=== PATIENT | female | born 1950 | race Caucasian/White ===

== ENCOUNTER 2017-05-01 16:05 | Emergency (ER) | payer MEDICARE, BC ==
[~2017-05-01] VITALS: Ht 154.9 cm; Wt 75.0 kg
[~2017-05-01 16:05] MED LIST: ATOR40TA PO; CHOL10008 PO; CITA40TA22 PO; HYDR-3972 PO; LOSA50TA3 PO; PANT-47 PO; POTA20TA10 PO; SPIR50TA PO
[2017-05-01] MEDS ORDERED: normal saline 1000ML IV soln IVB ONE ×2 (16:10→16:45)
[2017-05-01] MEDS ORDERED: ondansetron/PF 4mg/2ml inj IV ONE (16:10)
[2017-05-01 16:31] LABS: BASOPHILS # (AUTO) 0.1 X10'3 (0-0.2); BASOPHILS % (AUTO) 0.6 % (0-1); EOSINOPHILS % (AUTO) 0 % (0-6); HEMOGLOBIN 14.9 g/dl (12.0-16.0); LYMPHOCYTES # (AUTO) 0.8 X10'3 (1.1-4.8); LYMPHOCYTES % (AUTO) 4.3 % (21-51); MEAN CORPUSCULAR HGB CONC 33.8 % (33.0-36.5); MEAN CORPUSCULAR VOLUME 85.7 FL (78-98); MEAN PLATELET VOLUME 8.3 FL (7.4-10.4); MONOCYTES # (AUTO) 0.6 X10'3 (0-0.9); MONOCYTES % (AUTO) 3.5 % (2-12); NEUTROPHILS # (AUTO) 16.6 X10'3 (1.8-7.7); NEUTROPHILS % (AUTO) 91.6 % (42-75); PLATELET COUNT 286 X10'3 (140-440); RED BLOOD COUNT 5.14 X10'6 (4.20-5.60); RED CELL DISTRIBUTION WIDTH 14.3 % (11.5-14.5); WHITE BLOOD COUNT 18.2 X10'3 (4.5-11.0)
[2017-05-01] MEDS ORDERED: ondansetron 4mg rapidly disintigrating tab PO ONE (16:40)
[2017-05-01 16:53] LABS: ALANINE AMINOTRANSFERASE 73 U/L (12-78); ALBUMIN 4.6 G/DL (3.4-5.0); ALKALINE PHOSPHATASE 115 IU/L (46-116); ANION GAP 20 (8-16); ASPARTATE AMINO TRANSFERASE 56 U/L (10-37); BILIRUBIN,TOTAL 0.7 MG/DL (0.1-1.0); BLOOD UREA NITROGEN 25 MG/DL (7-18); CHLORIDE 96 MMOL/L (99-107); CREATININE 1.92 MG/DL (0.40-0.90); GLUCOSE 177 MG/DL (70-104); LIPASE 118 U/L (73-393); MAGNESIUM 2.1 MG/DL (1.5-2.4); POTASSIUM 3.3 MMOL/L (3.5-5.1); SODIUM 139 MMOL/L (135-145); TOTAL CARBON DIOXIDE 22.6 MMOL/L (24-32); TOTAL PROTEIN 9.3 G/DL (6.4-8.2); eGFR 26 ML/MIN
[2017-05-01] MEDS ORDERED: piperacillin/tazo 3.375gm/50ml 50 ML IV ONE (17:25)
[2017-05-01 17:27] LABS: ETHANOL < 0.010 GM/DL (0.0-0.010)
[2017-05-01] MEDS ORDERED: proCHLORperazine 10 MG/2 ml inj IV ONE (17:35)
[2017-05-01] MEDS ORDERED: LORazepam 2 mg/ml vial IV ONE (17:40)
[2017-05-01 17:49] LABS: PARTIAL THROMBOPLASTIN TIME 29 SECONDS (22-32); PROTHROMBIN TIME 10.8 SECONDS (9.0-12.0)
[2017-05-01 18:11] LABS: COLOR,URINE YELLOW (Yellow); GLUCOSE, URINE NEGATIVE (Neg); KETONES,URINE NEGATIVE (Neg); LEUKOCYTE ESTERASE ,URINE NEGATIVE (Neg); NITRITES, URINE NEGATIVE (Neg); OCCULT BLOOD,URINE LARGE (Neg); PH,URINE 7.5 (4.8-8.0); PROTEIN,URINE 100 mg/dl (Neg); UROBILINOGEN,URINE 0.2 E.U/dL (0.2-1.0)
[2017-05-01 18:18] LABS: UA COLLECTION TYPE FOLEY CATH
[2017-05-01 18:19] LABS: BACTERIA,URINE NONE SEEN /HPF (Neg); CLARITY,URINE Slightly Cloudy (Clear); SQUAMOUS EPITHELIAL CELL,UR MODERATE /LPF (FEW); WBC,URINE 0-4 /HPF (0-4)
[2017-05-01 18:22] LABS: URINE AMPHETAMINE SCREEN NEGATIVE (Neg); URINE BARBITUATE SCREEN NEGATIVE (Neg); URINE BENZODIAZEPINES SCREEN NEGATIVE (Neg); URINE CANNABINOID SCREEN POSITIVE (Neg); URINE COCAINE SCREEN NEGATIVE (Neg); URINE METHADONE SCREEN NEGATIVE (Neg); URINE OPIATE SCREEN NEGATIVE (Neg); URINE PHENCYCLIDINE SCREEN NEGATIVE (Neg)
[2017-05-01 19:49] VITALS: BP 130/61
== END 2017-05-01 19:53 | disposition short-term general hospital (02) ==
LOC: ER 16:05
DX: R41.82 Altered mental status, unspecified (principal); I10 Essential (primary) hypertension; Z90.710 Acquired absence of both cervix and uterus; Z90.49 Acquired absence of other specified parts of digestive tract; Z88.2 Allergy status to sulfonamides; Z79.899 Other long term (current) drug therapy
CPT/HCPCS: 36415; 51702; 70450; 71045; 74176; 80053; 80305; 80320; 81001; 83605; 83690; 83735; 83880; 84145; 84484; 85025; 85610; 85730; 87040; 93005; 96361; 96365; 96375; 99285; A4315; J0780; J2060; J2543; J7030

== ENCOUNTER 2017-06-17 10:37 | Inpatient (IN) | payer OTHER, MEDICARE, BC ==
[~2017-06-17] VITALS: Ht 154.9 cm; Wt 76.0 kg
[2017-06-17 12:15] LABS: CLARITY,URINE CLEAR (Clear); COLOR,URINE YELLOW (Yellow); GLUCOSE, URINE NEGATIVE (Neg); KETONES,URINE NEGATIVE (Neg); LEUKOCYTE ESTERASE ,URINE NEGATIVE (Neg); NITRITES, URINE NEGATIVE (Neg); OCCULT BLOOD,URINE NEGATIVE (Neg); PH,URINE 5.5 (4.8-8.0); PROTEIN,URINE NEGATIVE (Neg)
[2017-06-17 12:20] LABS: UA COLLECTION TYPE CLN CATCH MIDSTREAM
[2017-06-17 12:26] LABS: BASOPHILS # (AUTO) 0.1 X10'3 (0-0.2); BASOPHILS % (AUTO) 0.8 % (0-1); EOSINOPHILS # (AUTO) 0.2 X10'3 (0-0.9); EOSINOPHILS % (AUTO) 2.8 % (0-6); HEMATOCRIT 37.9 % (35.0-45.0); HEMOGLOBIN 12.9 g/dl (12.0-16.0); LYMPHOCYTES # (AUTO) 1.2 X10'3 (1.1-4.8); LYMPHOCYTES % (AUTO) 13.7 % (21-51); MEAN CORPUSCULAR HEMOGLOBIN 29.5 PG (27.0-31.0); MEAN CORPUSCULAR HGB CONC 34.1 % (33.0-36.5); MEAN CORPUSCULAR VOLUME 86.5 FL (78-98); MEAN PLATELET VOLUME 8.7 FL (7.4-10.4); MONOCYTES # (AUTO) 0.4 X10'3 (0-0.9); MONOCYTES % (AUTO) 4.8 % (2-12); NEUTROPHILS # (AUTO) 6.9 X10'3 (1.8-7.7); NEUTROPHILS % (AUTO) 77.9 % (42-75); PLATELET COUNT 209 X10'3 (140-440); RED BLOOD COUNT 4.38 X10'6 (4.20-5.60); RED CELL DISTRIBUTION WIDTH 15.1 % (11.5-14.5); WHITE BLOOD COUNT 8.8 X10'3 (4.5-11.0)
[2017-06-17 12:37] LABS: PARTIAL THROMBOPLASTIN TIME 27 SECONDS (22-32); PROTHROMBIN TIME 10.7 SECONDS (9.0-12.0)
[2017-06-17 12:47] LABS: CREATINE KINASE 68 U/L (26-192); MAGNESIUM 2.1 MG/DL (1.5-2.4)
[2017-06-17 12:57] LABS: BLOOD UREA NITROGEN 25 MG/DL (7-18); BUN/CREATININE RATIO 21.6 (6.6-38.0); CREATININE 1.16 MG/DL (0.40-0.90); eGFR 47 ML/MIN
[2017-06-17] MEDS ORDERED: normal saline 1000ML IV soln IVB ONE (13:00)
[2017-06-17 13:06] LABS: ALANINE AMINOTRANSFERASE 22 U/L (12-78); ALBUMIN/GLOBULIN RATIO 1.1 (1.1-1.5); ALKALINE PHOSPHATASE 109 IU/L (46-116); ANION GAP 8 (8-16); ASPARTATE AMINO TRANSFERASE 19 U/L (10-37); BILIRUBIN,TOTAL 0.6 MG/DL (0.1-1.0); CHLORIDE 103 MMOL/L (99-107); GLUCOSE 102 MG/DL (70-104); POTASSIUM 4.2 MMOL/L (3.5-5.1); SODIUM 140 MMOL/L (135-145); TOTAL CARBON DIOXIDE 28.7 MMOL/L (24-32); TOTAL PROTEIN 7.8 G/DL (6.4-8.2)
[2017-06-17] MEDS ORDERED: iohexol 350MG/ML 100ml bottle IV ONE (13:10)
[2017-06-17] MEDS ORDERED: HYDROcodone/acetaminophen 10/325mg tab PO ONE (14:45)
[2017-06-17] MEDS ORDERED: aspirin 325mg tablet PO ONE (14:50)
[2017-06-17] MEDS ORDERED: acetaminophen 325mg tablet PO PRN ×2 (15:35)
[2017-06-17] MEDS ORDERED: magnesium 2GM in 50ml NS 50 ML IV PRN (15:35)
[2017-06-17] MEDS ORDERED: magnesium hydroxide 30ml (MOM) UD suspension PO PRN (15:35)
[2017-06-17] MEDS ORDERED: HYDROcodone/acetaminophen 5mg/325mg tablet PO PRN (15:35)
[2017-06-17] MEDS ORDERED: magnesium Cl slow-release 64mg tablet PO PRN (15:35)
[2017-06-17] MEDS ORDERED: potassium Cl 20 mEq SR tablet PO PRN ×2 (15:35)
[2017-06-17] MEDS ORDERED: potassium Cl 40MEQ/NS 500ml 500 ML IV PRN ×2 (15:35)
[2017-06-17] MEDS ORDERED: mag hydrox/Alum hydrox/simeth 30ml oral suspension PO PRN (15:35)
[2017-06-17] MEDS ORDERED: magnesium 4gm in 100ml NS 100 ML IV PRN (15:35)
[2017-06-17] MEDS ORDERED: hydrALAZINE 20mg/ml inj. IV PRN (15:45)
[2017-06-17 16:00] LABS: HEMOGLOBIN A1C 6.3 % (4.5-6.2)
[2017-06-17 16:04] LABS: D-DIMER 0.41 MG/L FEU (0-0.50)
[2017-06-17 19:00] VITALS: BP 129/84
[2017-06-17] MEDS: HYDROcodone/acetaminophen 10/325mg tab PO PRN (21:45)
[2017-06-17] MEDS: atorvastatin 20mg tablet PO SCH (21:46)
[2017-06-17] MEDS: pantoprazole 40mg Tablet.DR PO SCH (21:46)
[2017-06-17] MEDS: losartan 50mg tablet PO SCH (21:46)
[2017-06-17 22:00] VITALS: BP 137/73
[2017-06-18] MEDS: HYDROcodone/acetaminophen 10/325mg tab PO PRN ×3 (05:37→17:06)
[2017-06-18 06:00] VITALS: BP 129/64
[2017-06-18 06:01] LABS: BASOPHILS # (AUTO) 0.1 X10'3 (0-0.2); BASOPHILS % (AUTO) 0.7 % (0-1); EOSINOPHILS # (AUTO) 0.2 X10'3 (0-0.9); EOSINOPHILS % (AUTO) 2.6 % (0-6); HEMATOCRIT 38.5 % (35.0-45.0); HEMOGLOBIN 13.2 g/dl (12.0-16.0); LYMPHOCYTES # (AUTO) 1.9 X10'3 (1.1-4.8); LYMPHOCYTES % (AUTO) 26.6 % (21-51); MEAN CORPUSCULAR HEMOGLOBIN 29.8 PG (27.0-31.0); MEAN CORPUSCULAR HGB CONC 34.2 % (33.0-36.5); MEAN CORPUSCULAR VOLUME 87.1 FL (78-98); MEAN PLATELET VOLUME 8.6 FL (7.4-10.4); MONOCYTES # (AUTO) 0.4 X10'3 (0-0.9); MONOCYTES % (AUTO) 5.4 % (2-12); NEUTROPHILS # (AUTO) 4.7 X10'3 (1.8-7.7); NEUTROPHILS % (AUTO) 64.7 % (42-75); PLATELET COUNT 183 X10'3 (140-440); RED BLOOD COUNT 4.42 X10'6 (4.20-5.60); RED CELL DISTRIBUTION WIDTH 14.7 % (11.5-14.5); WHITE BLOOD COUNT 7.3 X10'3 (4.5-11.0)
[2017-06-18 06:31] LABS: ALANINE AMINOTRANSFERASE 20 U/L (12-78); ALBUMIN 3.6 G/DL (3.4-5.0); ALKALINE PHOSPHATASE 93 IU/L (46-116); ANION GAP 10 (8-16); ASPARTATE AMINO TRANSFERASE 18 U/L (10-37); BILIRUBIN,TOTAL 0.6 MG/DL (0.1-1.0); BLOOD UREA NITROGEN 19 MG/DL (7-18); BUN/CREATININE RATIO 17.6 (6.6-38.0); CALCIUM 9.2 MG/DL (8.5-10.1); CHLORIDE 104 MMOL/L (99-107); CHOL/HDL RATIO 3.9 (0.00-4.99); CHOLESTEROL 147 MG/DL (0-200); CREATININE 1.08 MG/DL (0.40-0.90); GLUCOSE 100 MG/DL (70-104); HDL CHOLESTEROL 38 MG/DL (35-60); LDL CHOLESTEROL 90 MG/DL (50-100); MAGNESIUM 1.9 MG/DL (1.5-2.4); POTASSIUM 4.2 MMOL/L (3.5-5.1); SODIUM 141 MMOL/L (135-145); TOTAL CARBON DIOXIDE 27.1 MMOL/L (24-32); TOTAL PROTEIN 7.2 G/DL (6.4-8.2); TRIGLYCERIDES 110 MG/DL (20-135); eGFR 51 ML/MIN
[2017-06-18] MEDS: K and/or MAG REPLACEMENT MC SCH (07:29)
[2017-06-18] MEDS: spironolactone 50 MG tablet PO SCH (07:38)
[2017-06-18] MEDS: citalopram 20mg tablet PO SCH (07:39)
[2017-06-18] MEDS: losartan 50mg tablet PO SCH ×3 (07:39→19:57)
[2017-06-18] MEDS: potassium Cl 20 mEq SR tablet PO SCH (07:40)
[2017-06-18] MEDS: vitamin D (cholecalciferol) 1,000 unit tablet PO SCH (07:40)
[2017-06-18] MEDS: pantoprazole 40mg Tablet.DR PO SCH ×3 (07:40→19:57)
[2017-06-18] MEDS ORDERED: spironolactone 50 MG tablet PO SCH (08:00)
[2017-06-18 10:00] VITALS: BP 153/57
[2017-06-18 18:30] VITALS: BP 213/94
[2017-06-18] MEDS: atorvastatin 20mg tablet PO SCH ×2 (19:14→19:57)
[2017-06-18 19:16] VITALS: BP 168/83
[2017-06-18 22:00] VITALS: BP 140/58
[2017-06-19] MEDS: HYDROcodone/acetaminophen 10/325mg tab PO PRN ×2 (05:55→13:18)
[2017-06-19 06:00] VITALS: BP 160/72
[2017-06-19 06:06] LABS: BASOPHILS % (AUTO) 0.4 % (0-1); EOSINOPHILS # (AUTO) 0.2 X10'3 (0-0.9); EOSINOPHILS % (AUTO) 2.6 % (0-6); HEMATOCRIT 37.5 % (35.0-45.0); HEMOGLOBIN 12.9 g/dl (12.0-16.0); LYMPHOCYTES # (AUTO) 1.2 X10'3 (1.1-4.8); LYMPHOCYTES % (AUTO) 19.3 % (21-51); MEAN CORPUSCULAR HEMOGLOBIN 29.6 PG (27.0-31.0); MEAN CORPUSCULAR HGB CONC 34.3 % (33.0-36.5); MEAN CORPUSCULAR VOLUME 86.4 FL (78-98); MEAN PLATELET VOLUME 8.6 FL (7.4-10.4); MONOCYTES # (AUTO) 0.4 X10'3 (0-0.9); MONOCYTES % (AUTO) 5.9 % (2-12); NEUTROPHILS # (AUTO) 4.6 X10'3 (1.8-7.7); NEUTROPHILS % (AUTO) 71.8 % (42-75); PLATELET COUNT 174 X10'3 (140-440); RED BLOOD COUNT 4.34 X10'6 (4.20-5.60); RED CELL DISTRIBUTION WIDTH 14.9 % (11.5-14.5); WHITE BLOOD COUNT 6.4 X10'3 (4.5-11.0)
[2017-06-19 06:22] LABS: ALANINE AMINOTRANSFERASE 29 U/L (12-78); ALBUMIN 3.7 G/DL (3.4-5.0); ALKALINE PHOSPHATASE 98 IU/L (46-116); ANION GAP 7 (8-16); ASPARTATE AMINO TRANSFERASE 24 U/L (10-37); BILIRUBIN,TOTAL 0.7 MG/DL (0.1-1.0); BLOOD UREA NITROGEN 13 MG/DL (7-18); BUN/CREATININE RATIO 13.1 (6.6-38.0); CALCIUM 9.4 MG/DL (8.5-10.1); CHLORIDE 103 MMOL/L (99-107); CREATININE 0.99 MG/DL (0.40-0.90); GLUCOSE 104 MG/DL (70-104); POTASSIUM 3.9 MMOL/L (3.5-5.1); SODIUM 141 MMOL/L (135-145); TOTAL CARBON DIOXIDE 31.1 MMOL/L (24-32); TOTAL PROTEIN 7.4 G/DL (6.4-8.2); eGFR 56 ML/MIN
[2017-06-19] MEDS: K and/or MAG REPLACEMENT MC SCH (07:06)
[2017-06-19] MEDS: spironolactone 50 MG tablet PO SCH (07:15)
[2017-06-19] MEDS: losartan 50mg tablet PO SCH ×2 (07:18→19:34)
[2017-06-19] MEDS: citalopram 20mg tablet PO SCH (07:18)
[2017-06-19] MEDS: pantoprazole 40mg Tablet.DR PO SCH ×2 (07:19→19:34)
[2017-06-19] MEDS: vitamin D (cholecalciferol) 1,000 unit tablet PO SCH (07:19)
[2017-06-19] MEDS: potassium Cl 20 mEq SR tablet PO SCH (07:19)
[2017-06-19 10:00] VITALS: BP 117/65
[2017-06-19] MEDS: aspirin 81mg tablet.DR PO SCH (13:04)
[2017-06-19] MEDS ORDERED: benzonatate 100mg capsule PO PRN (13:05)
[2017-06-19] MEDS: ondansetron/PF 4mg/2ml inj IV PRN ×2 (13:23→19:34)
[2017-06-19 19:21] VITALS: BP 136/77
[2017-06-19] MEDS: atorvastatin 20mg tablet PO SCH (19:34)
[2017-06-19 22:08] VITALS: BP 132/72
[2017-06-20] MEDS: HYDROcodone/acetaminophen 10/325mg tab PO PRN ×2 (03:10→14:06)
[2017-06-20 05:45] LABS: BASOPHILS % (AUTO) 0.5 % (0-1); EOSINOPHILS # (AUTO) 0.1 X10'3 (0-0.9); EOSINOPHILS % (AUTO) 1.5 % (0-6); HEMATOCRIT 39.5 % (35.0-45.0); HEMOGLOBIN 13.3 g/dl (12.0-16.0); LYMPHOCYTES # (AUTO) 1.1 X10'3 (1.1-4.8); LYMPHOCYTES % (AUTO) 13.6 % (21-51); MEAN CORPUSCULAR HEMOGLOBIN 29.6 PG (27.0-31.0); MEAN CORPUSCULAR HGB CONC 33.7 % (33.0-36.5); MEAN CORPUSCULAR VOLUME 88.1 FL (78-98); MEAN PLATELET VOLUME 8.2 FL (7.4-10.4); MONOCYTES # (AUTO) 0.4 X10'3 (0-0.9); MONOCYTES % (AUTO) 4.9 % (2-12); NEUTROPHILS # (AUTO) 6.5 X10'3 (1.8-7.7); NEUTROPHILS % (AUTO) 79.5 % (42-75); PLATELET COUNT 214 X10'3 (140-440); RED BLOOD COUNT 4.49 X10'6 (4.20-5.60); WHITE BLOOD COUNT 8.2 X10'3 (4.5-11.0)
[2017-06-20 05:58] LABS: ALANINE AMINOTRANSFERASE 35 U/L (12-78); ALBUMIN 3.8 G/DL (3.4-5.0); ALKALINE PHOSPHATASE 100 IU/L (46-116); ANION GAP 9 (8-16); ASPARTATE AMINO TRANSFERASE 25 U/L (10-37); BILIRUBIN,TOTAL 0.7 MG/DL (0.1-1.0); BLOOD UREA NITROGEN 13 MG/DL (7-18); BUN/CREATININE RATIO 13.3 (6.6-38.0); CALCIUM 9.5 MG/DL (8.5-10.1); CHLORIDE 100 MMOL/L (99-107); CREATININE 0.98 MG/DL (0.40-0.90); GLUCOSE 116 MG/DL (70-104); POTASSIUM 4.4 MMOL/L (3.5-5.1); SODIUM 138 MMOL/L (135-145); TOTAL CARBON DIOXIDE 29.5 MMOL/L (24-32); TOTAL PROTEIN 7.6 G/DL (6.4-8.2); eGFR 57 ML/MIN
[2017-06-20 06:00] VITALS: BP 131/61
[2017-06-20] MEDS: K and/or MAG REPLACEMENT MC SCH (08:00)
[2017-06-20] MEDS: citalopram 20mg tablet PO SCH (08:46)
[2017-06-20] MEDS: aspirin 81mg tablet.DR PO SCH (08:46)
[2017-06-20] MEDS ORDERED: spironolactone 25 MG tablet PO SCH (08:47)
[2017-06-20] MEDS: pantoprazole 40mg Tablet.DR PO SCH (08:47)
[2017-06-20] MEDS: vitamin D (cholecalciferol) 1,000 unit tablet PO SCH (08:47)
[2017-06-20] MEDS: potassium Cl 20 mEq SR tablet PO SCH (08:47)
[2017-06-20] MEDS: losartan 50mg tablet PO SCH (08:47)
[2017-06-20 10:00] VITALS: BP 121/69
[2017-06-20] MEDS ORDERED: HYDR-569 PO (14:59)
== END 2017-06-20 15:50 | disposition home or self-care (01) | DRG 309 ==
LOC: ER 10:39 → ED HOLD 15:35 → ORTHO 4S 18:55
PROVIDERS: ADMIT Legal Medicine; ATTEND Legal Medicine
PROC: B32T1ZZ Computerized Tomography (CT Scan) of Left Pulmonary Artery using Low Osmolar Contrast (ICD-10-PCS; principal; 2017-06-17)
PROC: B3201ZZ Computerized Tomography (CT Scan) of Thoracic Aorta using Low Osmolar Contrast (ICD-10-PCS; 2017-06-17)
PROC: B32S1ZZ Computerized Tomography (CT Scan) of Right Pulmonary Artery using Low Osmolar Contrast (ICD-10-PCS; 2017-06-17)
DX: R00.1 Bradycardia, unspecified (principal); S26.91XA Contusion of heart, unspecified with or without hemopericardium, initial encounter; J44.9 Chronic obstructive pulmonary disease, unspecified; E78.5 Hyperlipidemia, unspecified; K44.9 Diaphragmatic hernia without obstruction or gangrene; F32.9 Major depressive disorder, single episode, unspecified; G89.29 Other chronic pain; S20.219A Contusion of unspecified front wall of thorax, initial encounter; K21.9 Gastro-esophageal reflux disease without esophagitis; I10 Essential (primary) hypertension; Z90.49 Acquired absence of other specified parts of digestive tract; Z90.710 Acquired absence of both cervix and uterus; Z88.7 Allergy status to serum and vaccine; Z88.2 Allergy status to sulfonamides; Z79.82 Long term (current) use of aspirin; Z87.891 Personal history of nicotine dependence; V49.88XA Car occupant (driver) (passenger) injured in other specified transport accidents, initial encounter; Y93.89 Activity, other specified; Y92.89 Other specified places as the place of occurrence of the external cause; Y99.8 Other external cause status
CPT/HCPCS: 36415; 70450; 71045; 71275; 80053; 80061; 81003; 82550; 83036; 83735; 83874; 84484; 85025; 85379; 85610; 85730; 87070; 93005; 93306; 93880; 96360; 99285; J0360; J2405; J7030; Q9967

== ENCOUNTER 2017-09-27 17:30 | Inpatient (IN) | payer MEDICARE, BC ==
[~2017-09-27] VITALS: Ht 162.6 cm; Wt 78.4 kg
[~2017-09-27 17:30] MED LIST changes: -HYDR-3972 PO; +HYDR-569 PO
[2017-09-27 17:57] LABS: BASOPHILS % (AUTO) 0.1 % (0-1); EOSINOPHILS % (AUTO) 0 % (0-6); HEMATOCRIT 43.3 % (35.0-45.0); HEMOGLOBIN 14.7 g/dl (12.0-16.0); LYMPHOCYTES # (AUTO) 0.7 X10'3 (1.1-4.8); LYMPHOCYTES % (AUTO) 3.6 % (21-51); MEAN CORPUSCULAR HEMOGLOBIN 29.7 PG (27.0-31.0); MEAN CORPUSCULAR HGB CONC 33.9 % (33.0-36.5); MEAN CORPUSCULAR VOLUME 87.6 FL (78-98); MEAN PLATELET VOLUME 9.1 FL (7.4-10.4); MONOCYTES # (AUTO) 0.5 X10'3 (0-0.9); MONOCYTES % (AUTO) 2.3 % (2-12); NEUTROPHILS # (AUTO) 19.2 X10'3 (1.8-7.7); PLATELET COUNT 291 X10'3 (140-440); RED BLOOD COUNT 4.94 X10'6 (4.20-5.60); RED CELL DISTRIBUTION WIDTH 14.9 % (11.5-14.5); WHITE BLOOD COUNT 20.4 X10'3 (4.5-11.0)
[2017-09-27] MEDS ORDERED: normal saline 1000ML IV soln IV ONE (18:05)
[2017-09-27] MEDS ORDERED: ondansetron/PF 4mg/2ml inj IV ONE (18:10)
[2017-09-27] MEDS ORDERED: morphine 4 MG/ML inj SYRINge IV PRN (18:10)
[2017-09-27 18:17] LABS: ALANINE AMINOTRANSFERASE 28 U/L (12-78); ALBUMIN 4.6 G/DL (3.4-5.0); ALBUMIN/GLOBULIN RATIO 1.1 (1.1-1.5); ALKALINE PHOSPHATASE 118 IU/L (46-116); ANION GAP 25 (8-16); ASPARTATE AMINO TRANSFERASE 22 U/L (10-37); BILIRUBIN,TOTAL 0.7 MG/DL (0.1-1.0); BLOOD UREA NITROGEN 28 MG/DL (7-18); BUN/CREATININE RATIO 12.4 (6.6-38.0); CALCIUM 10.5 MG/DL (8.5-10.1); CHLORIDE 96 MMOL/L (99-107); CREATININE 2.25 MG/DL (0.40-0.90); GLUCOSE 250 MG/DL (70-104); POTASSIUM 3.7 MMOL/L (3.5-5.1); SODIUM 139 MMOL/L (135-145); TOTAL CARBON DIOXIDE 17.6 MMOL/L (24-32); TOTAL PROTEIN 8.8 G/DL (6.4-8.2); eGFR 22 ML/MIN
[2017-09-27] MEDS ORDERED: azithromycin/NS 500mg/250ml 250 ML IV ONE (18:20)
[2017-09-27] MEDS ORDERED: CefTRIAXone 2gm/D5W 50ml 50 ML IV ONE (18:20)
[2017-09-27 18:33] LABS: INR 1.1 INR; PARTIAL THROMBOPLASTIN TIME 25 SECONDS (22-32); PROTHROMBIN TIME 10.9 SECONDS (9.0-12.0)
[2017-09-27] MEDS ORDERED: proCHLORperazine 10 MG/2 ml inj IV ONE (18:35)
[2017-09-27 19:24] LABS: CLARITY,URINE CLEAR (Clear); COLOR,URINE YELLOW (Yellow); GLUCOSE, URINE 250 mg/dl (Neg); KETONES,URINE 40 mg/dl (Neg); LEUKOCYTE ESTERASE ,URINE NEGATIVE (Neg); NITRITES, URINE NEGATIVE (Neg); OCCULT BLOOD,URINE SMALL (Neg); PH,URINE 6.5 (4.8-8.0); PROTEIN,URINE 30 mg/dl (Neg); UROBILINOGEN,URINE 0.2 E.U/dL (0.2-1.0)
[2017-09-27 19:36] LABS: UA COLLECTION TYPE CLN CATCH MIDSTREAM
[2017-09-27 19:37] LABS: RBC,URINE 0-2 /HPF (0-2)
[2017-09-27 19:38] LABS: BACTERIA,URINE 1+ /HPF (Neg); SQUAMOUS EPITHELIAL CELL,UR FEW /LPF (FEW)
[2017-09-27] MEDS ORDERED: AMOX500C2 PO (20:07)
[2017-09-27] MEDS ORDERED: LEVO75TA7 PO (20:07)
[2017-09-27] MEDS ORDERED: METO100T14 PO (20:07)
[2017-09-27] MEDS ORDERED: ASPI-1264 PO (20:07)
[2017-09-27] MEDS ORDERED: ACYC400T PO (20:07)
[2017-09-27] MEDS ORDERED: potassium Cl 40MEQ/NS 500ml 500 ML IV PRN ×2 (20:20)
[2017-09-27] MEDS ORDERED: magnesium Cl slow-release 64mg tablet PO PRN (20:20)
[2017-09-27] MEDS ORDERED: HYDROcodone/acetaminophen 5mg/325mg tablet PO PRN (20:20)
[2017-09-27] MEDS ORDERED: ipratropium/albuterol 3ml nebule NEB PRN (20:20)
[2017-09-27] MEDS ORDERED: mag hydrox/Alum hydrox/simeth 30ml oral suspension PO PRN (20:20)
[2017-09-27] MEDS ORDERED: acetaminophen 325mg tablet PO PRN ×2 (20:20)
[2017-09-27] MEDS ORDERED: magnesium 4gm in 100ml NS 100 ML IV PRN (20:20)
[2017-09-27] MEDS ORDERED: potassium Cl 20 mEq SR tablet PO PRN ×2 (20:20)
[2017-09-27] MEDS ORDERED: ondansetron/PF 4mg/2ml inj IV PRN (20:20)
[2017-09-27] MEDS ORDERED: magnesium 1gm/100ml D5W IVPB 100 ML IV PRN (20:20)
[2017-09-27] MEDS: normal saline 1000ml 1,000 ML IV SCH (20:43)
[2017-09-27] MEDS: atorvastatin 20mg tablet PO SCH (21:00)
[2017-09-27] MEDS ORDERED: normal saline 1000ml 1,000 ML IV ONE (21:15)
[2017-09-27 21:40] LABS: BASOPHILS % (AUTO) 0.1 % (0-1); EOSINOPHILS % (AUTO) 0 % (0-6); LYMPHOCYTES # (AUTO) 0.5 X10'3 (1.1-4.8); LYMPHOCYTES % (AUTO) 3.7 % (21-51); MEAN CORPUSCULAR HGB CONC 33.4 % (33.0-36.5); MEAN CORPUSCULAR VOLUME 89.9 FL (78-98); MEAN PLATELET VOLUME 8.6 FL (7.4-10.4); MONOCYTES # (AUTO) 0.3 X10'3 (0-0.9); MONOCYTES % (AUTO) 2.6 % (2-12); NEUTROPHILS # (AUTO) 12.4 X10'3 (1.8-7.7); NEUTROPHILS % (AUTO) 93.6 % (42-75); PLATELET COUNT 201 X10'3 (140-440); RED BLOOD COUNT 4.01 X10'6 (4.20-5.60); RED CELL DISTRIBUTION WIDTH 14.8 % (11.5-14.5); WHITE BLOOD COUNT 13.3 X10'3 (4.5-11.0)
[2017-09-27 22:00] VITALS: BP 175/75
[2017-09-27] MEDS ORDERED: metoprolol tartrate 50mg tablet PO ONE (22:20)
[2017-09-27 22:58] LABS: LIPASE 114 U/L (73-393)
[2017-09-27] MEDS: ipratropium/albuterol 3ml nebule NEB SCH (23:03)
[2017-09-28 02:00] VITALS: BP 181/75
[2017-09-28 06:00] VITALS: BP 198/86
[2017-09-28 06:09] LABS: BASOPHILS % (AUTO) 0.1 % (0-1); EOSINOPHILS # (AUTO) 0.1 X10'3 (0-0.9); EOSINOPHILS % (AUTO) 0.8 % (0-6); HEMATOCRIT 38.2 % (35.0-45.0); HEMOGLOBIN 12.9 g/dl (12.0-16.0); LYMPHOCYTES # (AUTO) 0.9 X10'3 (1.1-4.8); LYMPHOCYTES % (AUTO) 5.3 % (21-51); MEAN CORPUSCULAR HEMOGLOBIN 30.2 PG (27.0-31.0); MEAN CORPUSCULAR HGB CONC 33.8 % (33.0-36.5); MEAN CORPUSCULAR VOLUME 89.2 FL (78-98); MEAN PLATELET VOLUME 8.5 FL (7.4-10.4); MONOCYTES # (AUTO) 0.4 X10'3 (0-0.9); MONOCYTES % (AUTO) 2.7 % (2-12); NEUTROPHILS # (AUTO) 15.4 X10'3 (1.8-7.7); NEUTROPHILS % (AUTO) 91.1 % (42-75); PLATELET COUNT 227 X10'3 (140-440); RED BLOOD COUNT 4.28 X10'6 (4.20-5.60); RED CELL DISTRIBUTION WIDTH 15.2 % (11.5-14.5); WHITE BLOOD COUNT 16.9 X10'3 (4.5-11.0)
[2017-09-28] MEDS: losartan 50mg tablet PO SCH ×2 (07:12→20:15)
[2017-09-28] MEDS: acyclovir 200 MG capsule PO SCH (07:12)
[2017-09-28] MEDS: levoTHYROXINE 75mcg tablet PO SCH (07:12)
[2017-09-28] MEDS: spironolactone 50 MG tablet PO SCH (07:12)
[2017-09-28] MEDS: citalopram 20mg tablet PO SCH (07:12)
[2017-09-28] MEDS: aspirin 325mg tablet PO SCH (07:12)
[2017-09-28] MEDS: metoprolol tartrate 50mg tablet PO SCH ×2 (07:12→20:15)
[2017-09-28] MEDS: pantoprazole 40mg Tablet.DR PO SCH ×2 (07:12→20:15)
[2017-09-28] MEDS: enoxaparin 30mg/0.3ml syringe SUBCUT SCH (07:13)
[2017-09-28 07:16] LABS: ALANINE AMINOTRANSFERASE 26 U/L (12-78); ALBUMIN 3.8 G/DL (3.4-5.0); ALKALINE PHOSPHATASE 97 IU/L (46-116); ANION GAP 10 (8-16); ASPARTATE AMINO TRANSFERASE 18 U/L (10-37); BILIRUBIN,TOTAL 0.4 MG/DL (0.1-1.0); BLOOD UREA NITROGEN 18 MG/DL (7-18); BUN/CREATININE RATIO 13.4 (6.6-38.0); CALCIUM 8.1 MG/DL (8.5-10.1); CHLORIDE 102 MMOL/L (99-107); CREATININE 1.34 MG/DL (0.40-0.90); GLUCOSE 156 MG/DL (70-104); MAGNESIUM 1.7 MG/DL (1.5-2.4); PHOSPHORUS 2.9 MG/DL (2.3-4.5); POTASSIUM 4.7 MMOL/L (3.5-5.1); SODIUM 136 MMOL/L (135-145); TOTAL CARBON DIOXIDE 24.4 MMOL/L (24-32); TOTAL PROTEIN 7.7 G/DL (6.4-8.2); eGFR 39 ML/MIN
[2017-09-28 07:20] LABS: H PYLORI ANTIBODY NEGATIVE (Neg)
[2017-09-28] MEDS: ipratropium/albuterol 3ml nebule NEB SCH ×5 (07:51→23:00)
[2017-09-28] MEDS: K and/or MAG REPLACEMENT MC SCH (08:00)
[2017-09-28] MEDS: normal saline 1000ml 1,000 ML IV SCH (11:19)
[2017-09-28 15:00] VITALS: BP 98/53
[2017-09-28] MEDS ORDERED: proCHLORperazine 10 MG/2 ml inj IV PRN (15:05)
[2017-09-28] MEDS ORDERED: cefTRIAXone 1g/NS 100ml IVPB 100 ML IV ONE (17:35)
[2017-09-28] MEDS: CefTRIAXone/D5W-Rocephin 1gm 50 ML IV SCH (17:52)
[2017-09-28] MEDS ORDERED: azithromycin/NS 500mg/250ml 250 ML IV SCH (20:00)
[2017-09-28 20:15] VITALS: BP 184/86
[2017-09-28] MEDS: lactobacillus rhamnosus 10,000 MMU CELLS/CAPSULE PO SCH (20:15)
[2017-09-28] MEDS: atorvastatin 20mg tablet PO SCH (20:15)
[2017-09-28 22:00] VITALS: BP 179/73
[2017-09-29] VITALS (7 sets, daily range): BP systolic 88–194; BP diastolic 54–78
[2017-09-29] MEDS ORDERED: cloNIDine 0.1 mg tablet PO ONE (02:45)
[2017-09-29] MEDS: normal saline 1000ml 1,000 ML IV SCH ×2 (05:01→15:12)
[2017-09-29 05:04] LABS: BASOPHILS # (AUTO) 0.1 X10'3 (0-0.2); BASOPHILS % (AUTO) 0.5 % (0-1); EOSINOPHILS % (AUTO) 0 % (0-6); HEMATOCRIT 41.5 % (35.0-45.0); HEMOGLOBIN 13.9 g/dl (12.0-16.0); LYMPHOCYTES # (AUTO) 1.1 X10'3 (1.1-4.8); LYMPHOCYTES % (AUTO) 6.9 % (21-51); MEAN CORPUSCULAR HEMOGLOBIN 29.7 PG (27.0-31.0); MEAN CORPUSCULAR HGB CONC 33.4 % (33.0-36.5); MONOCYTES # (AUTO) 0.6 X10'3 (0-0.9); MONOCYTES % (AUTO) 3.9 % (2-12); NEUTROPHILS # (AUTO) 14.6 X10'3 (1.8-7.7); NEUTROPHILS % (AUTO) 88.7 % (42-75); PLATELET COUNT 247 X10'3 (140-440); RED BLOOD COUNT 4.67 X10'6 (4.20-5.60); RED CELL DISTRIBUTION WIDTH 13.8 % (11.5-14.5); WHITE BLOOD COUNT 16.4 X10'3 (4.5-11.0)
[2017-09-29 05:32] LABS: ALANINE AMINOTRANSFERASE 25 U/L (12-78); ALBUMIN 3.9 G/DL (3.4-5.0); ALBUMIN/GLOBULIN RATIO 0.9 (1.1-1.5); ALKALINE PHOSPHATASE 97 IU/L (46-116); ANION GAP 11 (8-16); ASPARTATE AMINO TRANSFERASE 22 U/L (10-37); BILIRUBIN,TOTAL 0.7 MG/DL (0.1-1.0); BLOOD UREA NITROGEN 17 MG/DL (7-18); BUN/CREATININE RATIO 16.5 (6.6-38.0); CALCIUM 8.8 MG/DL (8.5-10.1); CHLORIDE 95 MMOL/L (99-107); CREATININE 1.03 MG/DL (0.40-0.90); GLUCOSE 128 MG/DL (70-104); MAGNESIUM 1.9 MG/DL (1.5-2.4); PHOSPHORUS 2.8 MG/DL (2.3-4.5); POTASSIUM 3.9 MMOL/L (3.5-5.1); SODIUM 129 MMOL/L (135-145); TOTAL CARBON DIOXIDE 23.3 MMOL/L (24-32); TOTAL PROTEIN 8.1 G/DL (6.4-8.2); eGFR 53 ML/MIN
[2017-09-29] MEDS: ipratropium/albuterol 3ml nebule NEB SCH ×5 (07:09→23:00)
[2017-09-29] MEDS: pantoprazole 40mg Tablet.DR PO SCH ×2 (07:26→20:16)
[2017-09-29] MEDS: levoTHYROXINE 75mcg tablet PO SCH (07:26)
[2017-09-29] MEDS: losartan 50mg tablet PO SCH ×2 (07:27→20:00)
[2017-09-29] MEDS: lactobacillus rhamnosus 10,000 MMU CELLS/CAPSULE PO SCH ×2 (07:27→20:16)
[2017-09-29] MEDS: acyclovir 200 MG capsule PO SCH (07:27)
[2017-09-29] MEDS: aspirin 325mg tablet PO SCH (07:27)
[2017-09-29] MEDS: citalopram 20mg tablet PO SCH (07:27)
[2017-09-29] MEDS: enoxaparin 30mg/0.3ml syringe SUBCUT SCH (07:28)
[2017-09-29] MEDS: spironolactone 50 MG tablet PO SCH (07:33)
[2017-09-29] MEDS: metoprolol tartrate 50mg tablet PO SCH ×2 (07:33→20:00)
[2017-09-29] MEDS: magnesium hydroxide 30ml (MOM) UD suspension PO PRN (07:41)
[2017-09-29] MEDS: K and/or MAG REPLACEMENT MC SCH (08:00)
[2017-09-29] MEDS: HYDROcodone/acetaminophen 10/325mg tab PO PRN (17:19)
[2017-09-29] MEDS: CefTRIAXone/D5W-Rocephin 1gm 50 ML IV SCH (17:27)
[2017-09-29] MEDS: atorvastatin 20mg tablet PO SCH (20:16)
[2017-09-29] MEDS: metroNIDAZOLE 500mg tablet PO SCH (20:16)
[2017-09-29] MEDS: temazepam 15mg capsule PO PRN (22:00)
[2017-09-30] MEDS: normal saline 1000ml 1,000 ML IV SCH ×2 (00:17→20:18)
[2017-09-30 02:00] VITALS: BP 92/51
[2017-09-30 05:46] LABS: BASOPHILS % (AUTO) 0.3 % (0-1); EOSINOPHILS # (AUTO) 0.1 X10'3 (0-0.9); EOSINOPHILS % (AUTO) 0.6 % (0-6); HEMATOCRIT 35.7 % (35.0-45.0); HEMOGLOBIN 12.2 g/dl (12.0-16.0); LYMPHOCYTES # (AUTO) 2.2 X10'3 (1.1-4.8); LYMPHOCYTES % (AUTO) 25.6 % (21-51); MEAN CORPUSCULAR HEMOGLOBIN 30.4 PG (27.0-31.0); MEAN CORPUSCULAR HGB CONC 34.1 % (33.0-36.5); MEAN CORPUSCULAR VOLUME 89.2 FL (78-98); MEAN PLATELET VOLUME 8.9 FL (7.4-10.4); MONOCYTES # (AUTO) 0.6 X10'3 (0-0.9); MONOCYTES % (AUTO) 6.7 % (2-12); NEUTROPHILS # (AUTO) 5.7 X10'3 (1.8-7.7); NEUTROPHILS % (AUTO) 66.8 % (42-75); PLATELET COUNT 182 X10'3 (140-440); RED BLOOD COUNT 4.01 X10'6 (4.20-5.60); RED CELL DISTRIBUTION WIDTH 13.7 % (11.5-14.5); WHITE BLOOD COUNT 8.6 X10'3 (4.5-11.0)
[2017-09-30 05:50] LABS: ALANINE AMINOTRANSFERASE 21 U/L (12-78); ALBUMIN 3.2 G/DL (3.4-5.0); ALKALINE PHOSPHATASE 74 IU/L (46-116); ANION GAP 7 (8-16); ASPARTATE AMINO TRANSFERASE 16 U/L (10-37); BILIRUBIN,TOTAL 0.3 MG/DL (0.1-1.0); BLOOD UREA NITROGEN 37 MG/DL (7-18); BUN/CREATININE RATIO 24.5 (6.6-38.0); CALCIUM 8.4 MG/DL (8.5-10.1); CHLORIDE 101 MMOL/L (99-107); CREATININE 1.51 MG/DL (0.40-0.90); GLUCOSE 98 MG/DL (70-104); MAGNESIUM 2.4 MG/DL (1.5-2.4); PHOSPHORUS 4.5 MG/DL (2.3-4.5); POTASSIUM 3.7 MMOL/L (3.5-5.1); SODIUM 135 MMOL/L (135-145); TOTAL CARBON DIOXIDE 26.7 MMOL/L (24-32); TOTAL PROTEIN 6.5 G/DL (6.4-8.2); eGFR 34 ML/MIN
[2017-09-30 06:00] VITALS: BP 112/61
[2017-09-30] MEDS: ipratropium/albuterol 3ml nebule NEB SCH ×5 (07:00→23:00)
[2017-09-30] MEDS: K and/or MAG REPLACEMENT MC SCH (08:00)
[2017-09-30] MEDS: spironolactone 50 MG tablet PO SCH (08:00)
[2017-09-30] MEDS: losartan 50mg tablet PO SCH ×2 (08:00→20:00)
[2017-09-30] MEDS: citalopram 20mg tablet PO SCH (08:16)
[2017-09-30] MEDS: pantoprazole 40mg Tablet.DR PO SCH ×2 (08:16→20:17)
[2017-09-30] MEDS: levoTHYROXINE 75mcg tablet PO SCH (08:16)
[2017-09-30] MEDS: HYDROcodone/acetaminophen 10/325mg tab PO PRN ×2 (08:16→20:37)
[2017-09-30] MEDS: metoprolol tartrate 50mg tablet PO SCH ×2 (08:16→20:00)
[2017-09-30] MEDS: lactobacillus rhamnosus 10,000 MMU CELLS/CAPSULE PO SCH ×2 (08:17→20:17)
[2017-09-30] MEDS: metroNIDAZOLE 500mg tablet PO SCH ×2 (08:17→20:17)
[2017-09-30] MEDS: aspirin 325mg tablet PO SCH (08:17)
[2017-09-30] MEDS: enoxaparin 30mg/0.3ml syringe SUBCUT SCH (08:18)
[2017-09-30 11:00] VITALS: BP 99/54
[2017-09-30 15:00] VITALS: BP 97/55
[2017-09-30] MEDS: CefTRIAXone/D5W-Rocephin 1gm 50 ML IV SCH (17:18)
[2017-09-30 19:10] VITALS: BP_SYST 101; BP_SYST 129; BP_DIAS 66
[2017-09-30] MEDS: atorvastatin 20mg tablet PO SCH (20:17)
[2017-09-30] MEDS: temazepam 15mg capsule PO PRN ×2 (22:00→23:24)
[2017-09-30 23:46] VITALS: BP 130/62
[2017-10-01 02:30] VITALS: BP 118/55
[2017-10-01 06:00] VITALS: BP 129/64
[2017-10-01 07:26] LABS: BASOPHILS % (AUTO) 0.4 % (0-1); EOSINOPHILS # (AUTO) 0.1 X10'3 (0-0.9); EOSINOPHILS % (AUTO) 1.3 % (0-6); HEMATOCRIT 33.3 % (35.0-45.0); HEMOGLOBIN 11.3 g/dl (12.0-16.0); LYMPHOCYTES # (AUTO) 1.7 X10'3 (1.1-4.8); LYMPHOCYTES % (AUTO) 23.2 % (21-51); MEAN CORPUSCULAR HEMOGLOBIN 31.2 PG (27.0-31.0); MEAN CORPUSCULAR HGB CONC 34.1 % (33.0-36.5); MEAN CORPUSCULAR VOLUME 91.5 FL (78-98); MEAN PLATELET VOLUME 8.7 FL (7.4-10.4); MONOCYTES # (AUTO) 0.4 X10'3 (0-0.9); MONOCYTES % (AUTO) 5.4 % (2-12); NEUTROPHILS # (AUTO) 5.1 X10'3 (1.8-7.7); NEUTROPHILS % (AUTO) 69.7 % (42-75); PLATELET COUNT 167 X10'3 (140-440); RED BLOOD COUNT 3.64 X10'6 (4.20-5.60); WHITE BLOOD COUNT 7.3 X10'3 (4.5-11.0)
[2017-10-01 07:32] LABS: ALANINE AMINOTRANSFERASE 20 U/L (12-78); ALKALINE PHOSPHATASE 74 IU/L (46-116); ANION GAP 7 (8-16); ASPARTATE AMINO TRANSFERASE 13 U/L (10-37); BILIRUBIN,TOTAL 0.3 MG/DL (0.1-1.0); BLOOD UREA NITROGEN 23 MG/DL (7-18); BUN/CREATININE RATIO 21.7 (6.6-38.0); CALCIUM 8.3 MG/DL (8.5-10.1); CHLORIDE 106 MMOL/L (99-107); CREATININE 1.06 MG/DL (0.40-0.90); GLUCOSE 99 MG/DL (70-104); PHOSPHORUS 3.8 MG/DL (2.3-4.5); POTASSIUM 3.5 MMOL/L (3.5-5.1); SODIUM 138 MMOL/L (135-145); TOTAL CARBON DIOXIDE 24.8 MMOL/L (24-32); TOTAL PROTEIN 6.1 G/DL (6.4-8.2); eGFR 52 ML/MIN
[2017-10-01] MEDS: ipratropium/albuterol 3ml nebule NEB SCH ×5 (07:46→23:00)
[2017-10-01] MEDS: K and/or MAG REPLACEMENT MC SCH (08:00)
[2017-10-01] MEDS: aspirin 325mg tablet PO SCH (08:22)
[2017-10-01] MEDS: spironolactone 50 MG tablet PO SCH (08:22)
[2017-10-01] MEDS: levoTHYROXINE 75mcg tablet PO SCH (08:23)
[2017-10-01] MEDS: lactobacillus rhamnosus 10,000 MMU CELLS/CAPSULE PO SCH ×2 (08:23→19:46)
[2017-10-01] MEDS: pantoprazole 40mg Tablet.DR PO SCH ×2 (08:23→19:46)
[2017-10-01] MEDS: metoprolol tartrate 50mg tablet PO SCH ×2 (08:23→19:46)
[2017-10-01] MEDS: losartan 50mg tablet PO SCH ×2 (08:23→19:45)
[2017-10-01] MEDS: metroNIDAZOLE 500mg tablet PO SCH ×2 (08:23→19:46)
[2017-10-01] MEDS: citalopram 20mg tablet PO SCH (08:23)
[2017-10-01] MEDS: enoxaparin 30mg/0.3ml syringe SUBCUT SCH (08:24)
[2017-10-01] MEDS: magnesium hydroxide 30ml (MOM) UD suspension PO PRN (10:05)
[2017-10-01] MEDS: normal saline 1000ml 1,000 ML IV SCH ×2 (10:06→23:12)
[2017-10-01 11:00] VITALS: BP 99/63
[2017-10-01 15:00] VITALS: BP 124/62
[2017-10-01] MEDS ORDERED: bisacodyl 10mg suppository rectal RC STA (15:25)
[2017-10-01] MEDS: CefTRIAXone/D5W-Rocephin 1gm 50 ML IV SCH (18:00)
[2017-10-01] MEDS ORDERED: cefTRIAXone 1g/NS 100ml IVPB 100 ML IV ONE (18:01)
[2017-10-01 18:40] VITALS: BP 147/65
[2017-10-01] MEDS: lactulose 20gm/30ml cup PO SCH (19:45)
[2017-10-01] MEDS: atorvastatin 20mg tablet PO SCH (20:15)
[2017-10-01] MEDS: diatr meglu/diatrizoate 30ml oral sol.-(3 dose) bottle PO SCH (20:15)
[2017-10-01] MEDS: HYDROcodone/acetaminophen 10/325mg tab PO PRN (20:15)
[2017-10-01 23:00] VITALS: BP 164/86
[2017-10-02 02:00] VITALS: BP 134/83
[2017-10-02 06:00] VITALS: BP 122/62
[2017-10-02 06:51] LABS: LYMPHOCYTES # (AUTO) 1.7 X10'3 (1.1-4.8); MEAN CORPUSCULAR HEMOGLOBIN 30.1 PG (27.0-31.0); MEAN CORPUSCULAR HGB CONC 33.8 % (33.0-36.5)
[2017-10-02 06:53] LABS: BASOPHILS # (AUTO) 0.1 X10'3 (0-0.2); BASOPHILS % (AUTO) 0.7 % (0-1); EOSINOPHILS # (AUTO) 0.1 X10'3 (0-0.9); EOSINOPHILS % (AUTO) 1.6 % (0-6); HEMATOCRIT 37.3 % (35.0-45.0); HEMOGLOBIN 12.6 g/dl (12.0-16.0); LYMPHOCYTES % (AUTO) 19.3 % (21-51); MEAN CORPUSCULAR VOLUME 89.2 FL (78-98); MEAN PLATELET VOLUME 9.3 FL (7.4-10.4); MONOCYTES # (AUTO) 0.5 X10'3 (0-0.9); MONOCYTES % (AUTO) 5.2 % (2-12); NEUTROPHILS # (AUTO) 6.4 X10'3 (1.8-7.7); NEUTROPHILS % (AUTO) 73.2 % (42-75); PLATELET COUNT 209 X10'3 (140-440); RED BLOOD COUNT 4.19 X10'6 (4.20-5.60); RED CELL DISTRIBUTION WIDTH 14.7 % (11.5-14.5); WHITE BLOOD COUNT 8.8 X10'3 (4.5-11.0)
[2017-10-02 06:58] LABS: ALANINE AMINOTRANSFERASE 20 U/L (12-78); ALBUMIN 3.4 G/DL (3.4-5.0); ALBUMIN/GLOBULIN RATIO 0.9 (1.1-1.5); ALKALINE PHOSPHATASE 88 IU/L (46-116); ANION GAP 6 (8-16); ASPARTATE AMINO TRANSFERASE 21 U/L (10-37); BILIRUBIN,TOTAL 0.5 MG/DL (0.1-1.0); BLOOD UREA NITROGEN 13 MG/DL (7-18); BUN/CREATININE RATIO 13.3 (6.6-38.0); CALCIUM 8.7 MG/DL (8.5-10.1); CHLORIDE 104 MMOL/L (99-107); CREATININE 0.98 MG/DL (0.40-0.90); GLUCOSE 93 MG/DL (70-104); MAGNESIUM 1.7 MG/DL (1.5-2.4); PHOSPHORUS 3.2 MG/DL (2.3-4.5); SODIUM 137 MMOL/L (135-145); TOTAL CARBON DIOXIDE 26.9 MMOL/L (24-32); eGFR 57 ML/MIN
[2017-10-02 07:02] LABS: POTASSIUM 3.9 MMOL/L (3.5-5.1)
[2017-10-02] MEDS: ipratropium/albuterol 3ml nebule NEB SCH ×5 (07:04→23:00)
[2017-10-02] MEDS: K and/or MAG REPLACEMENT MC SCH (07:33)
[2017-10-02] MEDS: lactulose 20gm/30ml cup PO SCH ×2 (07:33→20:00)
[2017-10-02] MEDS: citalopram 20mg tablet PO SCH (07:37)
[2017-10-02] MEDS: spironolactone 50 MG tablet PO SCH (07:37)
[2017-10-02] MEDS: aspirin 325mg tablet PO SCH (07:37)
[2017-10-02] MEDS: lactobacillus rhamnosus 10,000 MMU CELLS/CAPSULE PO SCH ×2 (07:37→20:20)
[2017-10-02] MEDS: metoprolol tartrate 50mg tablet PO SCH ×2 (07:37→20:20)
[2017-10-02] MEDS: losartan 50mg tablet PO SCH ×2 (07:37→20:22)
[2017-10-02] MEDS: levoTHYROXINE 75mcg tablet PO SCH (07:37)
[2017-10-02] MEDS: pantoprazole 40mg Tablet.DR PO SCH ×2 (07:37→20:22)
[2017-10-02] MEDS: metroNIDAZOLE 500mg tablet PO SCH ×2 (07:37→20:18)
[2017-10-02] MEDS: diatr meglu/diatrizoate 30ml oral sol.-(3 dose) bottle PO SCH ×2 (07:38→09:53)
[2017-10-02] MEDS: enoxaparin 30mg/0.3ml syringe SUBCUT SCH (07:38)
[2017-10-02] MEDS ORDERED: iohexol 300mg/ml 100ml inj. ONE (09:35)
[2017-10-02 11:00] VITALS: BP 138/100
[2017-10-02] MEDS: normal saline 1000ml 1,000 ML IV SCH (14:42)
[2017-10-02 15:00] VITALS: BP 101/80
[2017-10-02] MEDS ORDERED: cefTRIAXone 1g/NS 100ml IVPB 100 ML IV ONE (17:20)
[2017-10-02] MEDS: CefTRIAXone/D5W-Rocephin 1gm 50 ML IV SCH (17:33)
[2017-10-02 18:00] VITALS: BP 136/75
[2017-10-02] MEDS: atorvastatin 20mg tablet PO SCH (20:34)
[2017-10-02] MEDS: HYDROcodone/acetaminophen 10/325mg tab PO PRN (20:36)
[2017-10-02 22:00] VITALS: BP 137/74
[2017-10-02] MEDS: temazepam 15mg capsule PO PRN (22:19)
[2017-10-03 02:00] VITALS: BP 132/77
[2017-10-03 06:00] VITALS: BP 138/69
[2017-10-03] MEDS: ipratropium/albuterol 3ml nebule NEB SCH ×3 (07:04→15:00)
[2017-10-03] MEDS: K and/or MAG REPLACEMENT MC SCH (07:06)
[2017-10-03] MEDS: enoxaparin 30mg/0.3ml syringe SUBCUT SCH (08:00)
[2017-10-03] MEDS: lactulose 20gm/30ml cup PO SCH (08:00)
[2017-10-03] MEDS: aspirin 325mg tablet PO SCH (08:56)
[2017-10-03] MEDS: lactobacillus rhamnosus 10,000 MMU CELLS/CAPSULE PO SCH (08:56)
[2017-10-03] MEDS: levoTHYROXINE 75mcg tablet PO SCH (08:56)
[2017-10-03] MEDS: metroNIDAZOLE 500mg tablet PO SCH (08:57)
[2017-10-03] MEDS: citalopram 20mg tablet PO SCH (08:57)
[2017-10-03] MEDS: losartan 50mg tablet PO SCH (08:57)
[2017-10-03] MEDS: metoprolol tartrate 50mg tablet PO SCH (08:57)
[2017-10-03] MEDS: spironolactone 50 MG tablet PO SCH (08:58)
[2017-10-03] MEDS: pantoprazole 40mg Tablet.DR PO SCH (08:58)
[2017-10-03 11:00] VITALS: BP 139/66
== END 2017-10-03 15:30 | disposition home or self-care (01) | DRG 871 ==
LOC: ER 17:30 → ED HOLD 20:18 → EDBEDREQSVC 21:13 → PCU 3S 21:45
PROVIDERS: ADMIT Family Medicine; ATTEND Internal Medicine
PROC: [UNRECOGNIZED PROCEDURE] (principal; 2017-09-28)
PROC: BW211ZZ Computerized Tomography (CT Scan) of Abdomen and Pelvis using Low Osmolar Contrast (ICD-10-PCS; 2017-10-02)
DX: A41.9 Sepsis, unspecified organism (principal); J18.9 Pneumonia, unspecified organism; N17.9 Acute kidney failure, unspecified; N39.0 Urinary tract infection, site not specified; J44.0 Chronic obstructive pulmonary disease with (acute) lower respiratory infection; E03.9 Hypothyroidism, unspecified; E78.5 Hyperlipidemia, unspecified; F32.9 Major depressive disorder, single episode, unspecified; N28.1 Cyst of kidney, acquired; E83.52 Hypercalcemia; I12.9 Hypertensive chronic kidney disease with stage 1 through stage 4 chronic kidney disease, or unspecified chronic kidney disease; I73.9 Peripheral vascular disease, unspecified; M85.80 Other specified disorders of bone density and structure, unspecified site; N18.3 Chronic kidney disease, stage 3 (moderate); Z90.49 Acquired absence of other specified parts of digestive tract; Z90.710 Acquired absence of both cervix and uterus; Z88.2 Allergy status to sulfonamides; Z88.7 Allergy status to serum and vaccine; Z79.899 Other long term (current) drug therapy; Z79.82 Long term (current) use of aspirin; Z87.891 Personal history of nicotine dependence; Z80.8 Family history of malignant neoplasm of other organs or systems; Z83.3 Family history of diabetes mellitus; Z82.49 Family history of ischemic heart disease and other diseases of the circulatory system
CPT/HCPCS: 36415; 71045; 74176; 74177; 78070; 78071; 80053; 81001; 82330; 83605; 83690; 83735; 83970; 84100; 84145; 84443; 84484; 85025; 85610; 85651; 85730; 86140; 86677; 87040; 87070; 87088; 93005; 94640; 94760; 96365; 96368; 96375; 97110; 97161; 97530; 99285; A9500; J0456; J0696; J0780; J1650; J2270; J2405; J3490; J7030; Q9963; Q9967